=== PATIENT | female | born 1990 | race Caucasian/White ===

== ENCOUNTER 2019-09-15 15:35 | Day surgery (SDC) | payer OTHER ==
[2019-09-15 15:53] VITALS: BMI 23.0
--- NOTE | 2019-09-15 16:01 | PDOC ---
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 hodges when she was noted to have significant amount of bleeding and was sent to the ED fof evluation and possible operative repair. bleeding was stopped with a pressure dressing placed by dr. hodges. The patient denies any fever/chills, significant pain, cp, sob, palpitations, lightheadedness, n/v. no prior bleeding diathesis known last food intake was 11am ROS: Constitutional - no reported Fever, Chills, HEENT: no reported vision changes, sore throat Respiratory: no reported cough, sob, hemoptysis Cardiac: no reported chest pain, palpitations, light headedness, leg swelling Abd/GI: no reported abd pain, nausea, vomiting, blood per rectum, melena, diarrhea : no reported dysuria, frequency, discharge Musculskelatal - no reported back pain, joint swelling skin - no reported bruising, erythema, rash neurological: no reported headache, numbness, focal weakness, tingling, ataxia, hematologic: no reported easy bruising, easy bleeding exam: GENERAL: The patient is awake, alert, and fully oriented, Nontoxic - in no acute distress. HEAD: Normocephalic, atraumatic. EYES: extraocular movements intact, sclera anicteric, conjunctiva clear. LUNGS: Breath sounds equal, clear to auscultation bilaterally. No wheezes, no rhonchi, no rales. HEART: Regular rate and rhythm, normal S1 and S2 without murmur, rub or gallop. CHEST: pressure dressing in place on chest that papears dry. lisa defer removal of dressing as pt is awaiting OR management ABDOMEN: Soft, nontender, No guarding, no rebound. No CVA tenderness EXTREMITIES: Normal range of motion, no edema. NEUROLOGICAL: No facial assymetry, Normal speech, PSYCH: Normal mood, normal affect. SKIN: Warm, Dry, normal turgor, will obtain preop labs case dw dr hodges plan is to go to OR Past History - Past Medical History Allergies/Adverse Reactions: Allergies Allergy/AdvReac Type Severity Reaction Status Date / Time No Known Allergies Allergy Unverified 09/15/19 15:40 Home Medications: Ambulatory Orders Oxycodone HCl/Acetaminophen [Percocet 5-325 mg Tablet] 1 tab PO PRN 09/15/19 COPD: No Other medical history: GRANULOMATOUS MASTITIS - Psycho Social/Smoking Cessation Hx Smoking History: Never smoked Information on smoking cessation initiated: No Hx Alcohol Use: No Drug/Substance Use Hx: No *Physical Exam - Vital Signs Last Vital Signs Temp Pulse Resp BP Pulse Ox 98.7 F 89 16 114/73 99 09/15/19 15:40 09/15/19 15:40 09/15/19 15:40 09/15/19 15:40 09/15/19 15:40 Discharge - Discharge Information Problems reviewed: Yes Clinical Impression/Diagnosis: Bleeding from breast Condition: Stable - Admission Yes - Follow up/Referral Referrals: Wero Ware MD [Primary Care Provider] - - Patient Discharge Instructions - Post Discharge Activity
[2019-09-15 16:36] LABS: BASO % 0.4 % (0-2.0); CALCIUM 9.2 mg/dl (8.5-10); CREATININE 0.7 mg/dl (0.55-1.3); EOS % 4.7 % (0-4.5); HEMATOCRIT 41.5 % (32.4-45.2); LYMPH % 25.7 % (8-40); MCH 31.4 pg (25.7-33.7); MCHC 33.8 g/dl (32.0-36.0); MEAN CELL VOLUME 92.9 fl (80-96); MEAN PLT VOLUME 8.1 fl (7.5-11.1); MONO % 6.9 % (3.8-10.2); NEUT % 62.3 % (42.8-82.8); PLATELET COUNT 317 K/MM3 (134-434); POTASSIUM 3.9 mmol/L (3.5-5.1); RBC 4.47 M/mm3 (3.60-5.2); RDW 12.3 % (11.6-15.6); WHITE BLOOD COUNT 9.1 K/mm3 (4.0-10.8)
[2019-09-15 16:38] LABS: INR 1.24 (0.82-1.09); PROTHROMBIN TIME (PATIENT) 13.8 SEC (10.2-13.0)
[2019-09-15] MEDS ORDERED: PROPOFOL 20 ML ONE ×2 (18:46)
[2019-09-15] MEDS ORDERED: MIDAZOLAM HCL 2 MG/2 ML SINGLE DOSE VIAL ONE (18:46)
[2019-09-15] MEDS ORDERED: SUCCINYLCHOLINE CHLORIDE 200 MG/10 ML SYRINGE ONE (18:46)
[2019-09-15] MEDS ORDERED: LIDOCAINE HCL 2% JELLY (5 ML/TUBE) ONE (18:47)
[2019-09-15] MEDS ORDERED: DEXAMETHASONE SOD PHOSPHATE 4 MG/1 ML VIAL ONE (19:14)
[2019-09-15] MEDS ORDERED: ONDANSETRON 4 MG/2 ML VIAL ONE (19:14)
[2019-09-15] MEDS ORDERED: PROMETHAZINE HCL 25 MG/1 ML VIAL ONE (19:22)
[2019-09-15] MEDS ORDERED: oxyCODONE HCL 5 MG TABLET PO PRN ×3 (19:48→19:56)
[2019-09-15] MEDS ORDERED: PROMETHAZINE HCL 25 MG/1 ML VIAL IVPUSH PRN (19:48)
[2019-09-15] MEDS ORDERED: ONDANSETRON 4 MG/2 ML VIAL IVPUSH PRN ×2 (19:48→19:56)
[2019-09-15] MEDS ORDERED: DEXTROSE 5%-0.45% SALINE 1,000 ML IV SCH (20:00)
--- NOTE | 2019-09-15 20:03 | OP ---
Operative Note - Note: Operative Date: 09/15/19 Pre-Operative Diagnosis: Bleeding right breast wound, S/P I&D Operation: Right breast wound exploration and coagulation of bleeder Surgeon: Wero Ware Anesthesia: General Estimated Blood Loss (mls): 1 Drains & Tubes with Location: 2 merlin drains Operative Report Dictated: Yes
--- NOTE | 2019-09-15 23:34 | OP ---
DATE OF OPERATION: 09/15/2019 PREOPERATIVE DIAGNOSIS: Bleeding postoperative right breast wound. POSTOPERATIVE DIAGNOSIS: Bleeding postoperative right breast wound. PROCEDURE: Exploration of right breast wound with cauterization of bleeding spot. ANESTHESIA: General intubated. ATTENDING SURGEON: Jose Ware M.D. ESTIMATED BLOOD LOSS: Minimal. COMPLICATIONS: None. DESCRIPTION OF PROCEDURE: The patient was made aware of the risks and benefits of the procedure and consented. She was placed in the supine position, and after general anesthesia was induced, the patient was intubated. Prior Paulino wrap and gauze was removed. Unfortunately there was no more bleeding at that time. The wound was prepped and draped in the usual sterile fashion. The prior Anupam drains were removed, and the wound was investigated. Immediately there was a bleeding vein, which was cauterized. The wound was copiously irrigated with normal saline. Further hemostasis maintained by my electrocautery to the point where I was sure there were no bleeding spots. Two 3/4-inch Anupam drains were placed in each abscess cavity and sutured to the skin with 3-0 nylon. Sterile dressing as well as an Paulino wrap was placed around the breast. The patient tolerated procedure well, was transferred to the recovery room in excellent condition. JOSE WARE M.D. [id number]
--- NOTE | 2019-09-16 09:27 | PN ---
Progress Note, Physician Chief Complaint: Right breast Bleed S/P prior I and D of breast for granulomatous mastitis History of Present Illness: patient's pain is controlled with oxycodone, ready for discharge - Current Medication List Current Medications: Active Medications Dextrose/Sodium Chloride (D5-1/2ns -) 1,000 mls @ 100 mls/hr IV ASDIR BRENDA Last Admin: 09/15/19 22:28 Dose: 100 mls/hr Ondansetron HCl (Zofran Injection) 4 mg IVPUSH Q6H PRN PRN Reason: NAUSEA AND/OR VOMITING Oxycodone HCl (Roxicodone -) 5 mg PO Q4H PRN PRN Reason: PAIN LEVEL 1-5 Oxycodone HCl (Roxicodone -) 10 mg PO Q4H PRN PRN Reason: PAIN LEVEL 6-10 Last Admin: 09/16/19 03:35 Dose: 10 mg - Objective Vital Signs: Vital Signs Temperature 98 F 09/16/19 05:00 Pulse Rate 82 09/16/19 05:00 Respiratory Rate 17 09/16/19 08:40 Blood Pressure 102/60 09/16/19 05:00 O2 Sat by Pulse Oximetry (%) 100 09/16/19 08:40 Constitutional: Yes: No Distress Breast(s): Yes: Other (Right breast incision intact with [address] minimal drainage serosanguinous, no erythema) Labs: CBC, BMP 09/15/19 15:55 09/15/19 15:55 INR, PTT INR 1.24 (0.82-1.09) H 09/15/19 15:55 Problem List - Problems (1) Bleeding from breast Code(s): N64.59 - OTHER SIGNS AND SYMPTOMS IN BREAST Assessment/Plan Discharge patient home today No shower Cipro twice daily percocet prn/tylenol prn follow up [address] sharpe change dressing daily with ABD.
[2019-09-16 11:03] VITALS: BP 105/62; PULSE 77; TEMP 97.8
== END 2019-09-16 11:00 | disposition home or self-care (01) ==
LOC: FER 15:35 → FASUSAT 20:04 → FM/S 20:50 → FASUSAT 09-16 11:00
PROVIDERS: ATTEND Surgery Surgical Oncology
PROC: 0HBT0ZZ Excision of Right Breast, Open Approach (ICD-10-PCS; principal; 2019-09-15 19:12)
DX: L76.22 Postprocedural hemorrhage of skin and subcutaneous tissue following other procedure (principal); Y83.9 Surgical procedure, unspecified as the cause of abnormal reaction of the patient, or of later complication, without mention of misadventure at the time of the procedure; Y82.9 Unspecified medical devices associated with adverse incidents; Y92.9 Unspecified place or not applicable
CPT/HCPCS: 36415; 80048; 84703; 85025; 85610; 86850; 86900; 86901; 94760; 99282-25

== ENCOUNTER 2019-09-17 19:21 | Emergency (ER) | payer OTHER ==
[2019-09-17 20:00] VITALS: BP 105/74; PULSE 86; TEMP 98.3; BMI 20.5
--- NOTE | 2019-09-17 20:18 | PDOC ---
*Physical Exam - Vital Signs Last Vital Signs Temp Pulse Resp BP Pulse Ox 98.3 F 86 20 105/74 100 09/17/19 19:22 09/17/19 19:22 09/17/19 19:22 09/17/19 19:22 09/17/19 19:22 ED Progress Note - Progress Note Progress Note: 09/17/19 20:15 This patient was not seen or evaluated by me. Patient came into the ED was seen by Dr. Alexis, treated by Dr. Alexis and discharged by Dr. Alexis. Discharge - Discharge Information Problems reviewed: Yes Clinical Impression/Diagnosis: Bleeding from breast - Follow up/Referral - Patient Discharge Instructions - Post Discharge Activity
--- NOTE | 2019-09-17 20:24 | CONSULT ---
Consult Consult Specialty:: Breast Surgery Referred by:: ER Reason for Consultation:: right brest bleeding - History of Present Illness Chief Complaint: Right breast abscess/bleeding/granulomatous mastitis History of Present Illness: The patient is a 29 y.o. G3,P3 Hipanic female of [place] descent who developed swelling/pain and abscesses of the right breast n September 2018 initially treated at [facility]. She underwent multiple aspirations and irrigations of some abscesses by Dr. Ware in October 2018 and eventually underwent a right breast ultrasound guided core biopsy in January 2019 and was diagnosed with granulomatous mastitis. She was noncompliant with steroids and developed a draining sinus tract which eventually healed in. She developed recurrent pain and abscesses in July 2019 again requiring antibiotics. She required a surgical I&D by Dr. Ware on 09/10/19 but developed postop bleeding and returned to the OR for an evacuation of blood and merlin placement on 09/15/19. She has been having more bleeding and now represents to the ER at [place]. 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: No: Alzheimer's, CVA, Dementia, Migraine, Multiple Sclerosis, Peripheral Neuropathy, Parkinson's, Seizure, Syncope, TIA, Vertigo, Other Cardio/Vascular: No: AFIB, Aneurysm, Aortic Insufficiency, Aortic Stenosis, CAD , CHF, Deep Vein Thrombosis, HTN, Hyperlipdemia, NC, Mitral Insufficiency, Mitral Stenosis, Murmur, Pulmonary Hypertension, Other Gastrointestinal: No: Ascites, Cancer, Constipation, Crohn's Disease, Diverticulitis, Diverticulosis, Esophageal Varices, Gastritis, GERD, GI Bleed, Hemorrhoids, Hiatal Hernia, Inflamatory Bowel Disease, Irritable Bowel Disease, Pancreatitis, Peptic Ulcer Disease, Ulcerative Colitis, Other Hepatobiliary: No: Cirrhosis, Cholelithiasis, Cholecystitis, Choledocholithiasis , Hepatitis A, Hepatitis B, Hepatitis C, Other Renal/: No: Renal Failure, Renal Inusuff, BPH, Cancer, Hematuria, Hemodialysis , Neurogenic Bladder, Renal Calculi, UTI, Other Heme/Onc: No: Anemia, B12 Deficiency, Bleeding Disorder, Cancer, Current Chemotherapy, Current Radiation Therapy, Hemochromatosis, Hypercoaguable State, Myeloproliferative Synd, Sickle Cell Disease, Sickle Cell Trait, Thrombocytopenia, Other Infectious Disease: Yes: Other (recurrent breast abscesses) Psych: No: Addictions, Anxiety, Bipolar, Depression, Panic, Psychosis, Schizophrenia, Other Musculoskeletal: No: Bursitis, Chronic low back pain, Hemiparesis, Hemiplegia, Osteoarthritis, Paraplegia, Other Rheumatology: No: Fibromyalgia, Gout, Lupus, Rheumatoid Arthritis, Sarcoidosis, Vasculitis, Other ENT: No: Allergic Rhinitis, Sinusitis, Other Dermatology: No: Basal Cell, Cellulitis, Eczema, Melanoma, Psoriasis, Squamous Cell, Other - Past Surgical History Past Surgical History: Yes: (2014) - Alcohol/Substance Use Hx Alcohol Use: No History of Substance Use: reports: None - Smoking History Smoking history: Never smoked Have you smoked in the past 12 months: No - Social History Usual Living Arrangement: With Spouse Home Medications - Allergies Allergies/Adverse Reactions: Allergies Allergy/AdvReac Type Severity Reaction Status Date / Time No Known Allergies Allergy Verified 09/17/19 19:23 - Home Medications Home Medications: Ambulatory Orders Oxycodone HCl/Acetaminophen [Percocet 5-325 mg Tablet] 1 tab PO PRN 09/15/19 Ciprofloxacin HCl [Cipro] 500 mg PO BID 10 Days #20 tablet 09/16/19 Oxycodone HCl/Acetaminophen [Percocet 5-325 mg Tablet] 1 tab PO Q6H PRN #10 tablet MDD 4 09/16/19 Family Medical History Family History: Denies Review of Systems - Review of Systems Constitutional: reports: Other (right breast bleeding) Eyes: reports: No Symptoms HENT: reports: No Symptoms Neck: reports: No Symptoms Cardiovascular: reports: No Symptoms Respiratory: reports: No Symptoms Gastrointestinal: reports: No Symptoms Genitourinary: reports: No Symptoms Breasts: reports: Other (right breast bleeding postop) Musculoskeletal: reports: No Symptoms Neurological: reports: No Symptoms Endocrine: reports: No Symptoms Hematology/Lymphatic: reports: No Symptoms Psychiatric: reports: No Symptoms Physical Exam Vital Signs: Vital Signs Temperature 98.3 F 09/17/19 19:22 Pulse Rate 86 09/17/19 19:22 Respiratory Rate 20 09/17/19 19:22 Blood Pressure 105/74 09/17/19 19:22 O2 Sat by Pulse Oximetry (%) 100 09/17/19 19:22 Constitutional: Yes: Well Nourished, No Distress Eyes: Yes: WNL HENT: Yes: WNL Neck: Yes: Supple, Trachea Midline Cardiovascular: Yes: Regular Rate and Rhythm Respiratory: Yes: Regular, CTA Bilaterally Gastrointestinal: Yes: Normal Bowel Sounds, Soft Renal/: Yes: WNL Breast(s): Yes: Other (right breast wound clean, open with merlin in place. Old blood in wound irrigated out and no active bleeding at his time.) Musculoskeletal: Yes: WNL Extremities: Yes: WNL Integumentary: Yes: WNL Wound/Incision: Yes: Other (Open with merlin in place and no current active bleeding or signs of infection currently) Neurological: Yes: WNL Psychiatric: Yes: WNL Problem List - Problems (1) Bleeding from breast Assessment/Plan: The patient is a 29 y.o. G3,P3 Hipanic female of [place] descent who developed swelling/pain and abscesses of the right breast n September 2018 initially treated at [facility]. She underwent multiple aspirations and irrigations of some abscesses by Dr. Ware in October 2018 and eventually underwent a right breast ultrasound guided core biopsy in January 2019 and was diagnosed with granulomatous mastitis. She was noncompliant with steroids and developed a draining sinus tract which eventually healed in. She developed recurrent pain and abscesses in July 2019 again requiring antibiotics. She required a surgical I&D by Dr. Ware on 09/10/19 but developed postop bleeding and returned to the OR for an evacuation of blood and merlin placement on 09/15/19. She has been having more bleeding and now represents to the ER at [place]. The patient currently has no active bleeding from her breast and the wound appears clean. It was irrigated out with 1 liter of saline peroxide irrigation and no further bleeding was seen. A new compressive neela dressing was placed and she was instructed to come in to my office tomorrow AM for another wound evaluation and dressing change. Problems reviewed: Yes Code(s): N64.59 - OTHER SIGNS AND SYMPTOMS IN BREAST
== END 2019-09-17 20:27 | disposition home or self-care (01) ==
LOC: FER 19:21
DX: N64.59 Other signs and symptoms in breast (principal)
CPT/HCPCS: 99282-25